=== PATIENT | male | born 1980 | race Caucasian/White ===

== ENCOUNTER 2019-08-08 18:04 | Emergency (ER) | payer BC ==
--- NOTE | 2019-08-08 18:33 | UC ---
Respiratory Complaint HPI - HPI Summary HPI Summary: 38 yo male presents with flu-like symptoms. He tells me that on 08/05 he developed fever, fatigue, body aches, and dry cough. He went to [facility] and had a negative flu test and CXR. They dx'd him with flu and prescribed him with tamiflu. He has not taken the tamiflu. Symptoms have been continuing. Temp today 102.3F that resolves with tylenol. Last dose was about 1 hour [employer]. He does not smoke. Denies sinus symptoms, sore throat, SOB, chest pain, n/v. Did not get flu shot today. No known exposure to COVID. No recent travel. - History of Current Complaint Stated Complaint: FEVER/COUGH Time Seen by Provider: 08/08/19 18:32 Hx Obtained From: Patient Onset/Duration: Sudden Onset Severity Initially: Mild Severity Currently: Mild Pain Intensity: 4 Pain Scale Used: 0-10 Numeric - Allergies/Home Medications Allergies/Adverse Reactions: Allergies Allergy/AdvReac Type Severity Reaction Status Date / Time amoxicillin Allergy Unknown Verified 08/08/19 18:49 Reaction Details Penicillins Allergy Unknown Verified 08/08/19 18:49 Reaction Details Home Medications: Home Medications Acetaminophen TAB* [Tylenol TAB*] 650 mg PO Q6HR 08/08/19 [History Confirmed ] Amlodipine Besylate [Amlodipine 2.5 mg tab] 2.5 mg PO DAILY 08/08/19 [History Confirmed 08/08/19] Azithromycin TAB* [Zithromax TAB (Z-FAREED) 250 mg #6 tabs] 2 tab PO .TODAY, THEN 1 DAILY #1 fareed 08/08/19 [Rx] Libida 1 mg INJ SEE INSTRUCTIONS 08/08/19 [History Confirmed 08/08/19] Lisinopril TAB* [Prinivil TAB 5 MG*] 5 mg PO DAILY 08/08/19 [History Confirmed 08/08/19] allopurinoL [Allopurinol] 100 mg PO DAILY 08/08/19 [History Confirmed 08/08/19] PMH/Surg Hx/FS Hx/Imm Hx - Additional Past Medical History Additional PMH: Gout Cardiovascular History: Hypertension - Surgical History Surgical History: None - Family History Known Family History: Positive: Hypertension - Social History Occupation: Employed Full-time Lives: With Family Alcohol Use: Occasionally Substance Use Type: None Smoking Status (MU): Current Every Day Smoker Type: Melia Review of Systems All Other Systems Reviewed And Are Negative: No Constitutional: Positive: Fever, Fatigue Skin: Positive: Negative Eyes: Positive: Negative ENT: Positive: Negative Respiratory: Positive: Cough Cardiovascular: Positive: Negative Gastrointestinal: Positive: Negative Neurological/Mental Status: Positive: Negative Psychological: Positive: Negative Physical Exam - Summary Physical Exam Summary: GENERAL: NAD. WDWN. No pain distress. SKIN: No rashes, sores, lesions, or open wounds. HEENT: Head: AT/NC Eyes: Conjunctiva clear without inflammation or discharge. Ears: Hearing grossly normal. TMs intact, no bulging, erythema, or edema. Nose: Nasal mucosa pink and moist. NTTP maxillary and frontal sinus. Throat: Posterior oropharynx without exudates, erythema, or tonsillar enlargement. Uvula midline. NECK: Supple. Nontender. No lymphadenopathy. CHEST: Mild wheezing throughout. No r/r. No accessory muscle use. Breathing comfortably and in no distress. CV: RRR. Pulses intact. Cap refill <2seconds NEURO: Alert. PSYCH: Age appropriate behavior. Triage Information Reviewed: Yes Vital Signs: Vital Signs: Temp Pulse Resp BP Pulse Ox 99.2 F 100 18 118/78 96 08/08/19 18:33 08/08/19 18:33 08/08/19 18:33 08/08/19 18:33 08/08/19 18:33 Laboratory Tests 08/08/19 08/08/19 19:15 19:18 Influenza A (Rapid) Negative Influenza B (Rapid) Negative Group A Strep Rapid Negative Vital Signs Reviewed: Yes Diagnostics - Radiology CXR Radiology Interpretation Completed By: Radiologist Summary of Radiographic Findings: IMPRESSION: No acute cardiopulmonary disease. Respiratory Course/Dx - Course Course Of Treatment: POC strep and flu negative. Exam performed utilizing CDC recommended PPE. You are being tested for COVID-19. You need to quarantine yourself in a bedroom and bathroom only you are using. You may not leave the house. [facility] will contact you and notify of results when they are available. Advised to be on home isolation until cleared by the health department. Go to ED for increased SOB or any difficulty breathing - new or worsening symptoms. - Differential Dx/Diagnosis Provider Diagnosis: Bronchitis Discharge ED - Sign-Out/Discharge Documenting (check all that apply): Patient Departure All imaging exams completed and their final reports reviewed: Yes - Discharge Plan Condition: Stable Disposition: HOME Prescriptions: Azithromycin TAB* [Zithromax TAB (Z-FAREED) 250 mg #6 tabs] 2 tab PO .TODAY, THEN 1 DAILY #1 fareed Patient Education Materials: Acute Bronchitis (ED) Referrals: Annemarie Fernando MD [Primary Care Provider] - Additional Instructions: FLU TEST NEGATIVE TODAY You are being tested for COVID-19. You need to quarantine yourself in a bedroom and bathroom only you are using. You may not leave the house. [facility] will contact you and notify of results when they are available. Advised to be on home isolation until cleared by the health department. Go to ED for increased SOB or any difficulty breathing - new or worsening symptoms. - Billing Disposition and Condition Condition: STABLE Disposition: Home
[2019-08-08 19:17] VITALS: BP 118/78
[2019-08-08 19:29] LABS: Influenza A Molecular Negative (Negative); Influenza B Molecular Negative (Negative)
== END 2019-08-08 19:35 | disposition home or self-care (01) ==
LOC: UCEAST 18:04
DX: J40 Bronchitis, not specified as acute or chronic (principal); I10 Essential (primary) hypertension; F17.290 Nicotine dependence, other tobacco product, uncomplicated; Z88.0 Allergy status to penicillin; Z79.899 Other long term (current) drug therapy
CPT/HCPCS: 71046; 87651; 99212; G0463; U0002

== ENCOUNTER 2019-08-12 12:50 | Inpatient (IN) | payer BC ==
[2019-08-12] MEDS ORDERED: NS 0.9% 1000 ML** 1,000 ML IV ONE (13:03)
[2019-08-12] MEDS ORDERED: Ondansetron INJ* 2 MG/ML VIAL IV ONE (13:03)
[2019-08-12] MEDS ORDERED: Levofloxacin 750 MG IVPREMIX(* 750 MG/150 ML BAG IVPB ONE (13:05)
[2019-08-12] MEDS ORDERED: Acetaminophen TAB* 325 MG PO ONE (13:05)
[2019-08-12] MEDS ORDERED: Acetaminophen TAB* 325 MG ONE (13:07)
--- NOTE | 2019-08-12 13:07 | ED ---
Respiratory - HPI Summary HPI Summary: This pt is a 38 Y/O M presenting to [facility] with a CC of worsening SOB that began this morning when he woke up. He states that he began feeling sick on Wednesday and has not improved. He was seen on 08/08/2019 at urgent care where he had a COVID-19 test preformed which eventually was positive. He states that since the onset he has been feverish with chills, SOB, CP, diarrhea, vomiting, and nausea. His CP is rated an 8/10 and worsens with deep breaths. Today his symptoms worsened acutely and the pt became more SOB and developed a more aggressive cough. He has no aggravating or alleviating factors. Pt denies any, erythema of eyes, abdominal pain, dysuria, hematuria, myalgia, edema, rash, or dizziness. He has a PMHx of HTN. - History of Current Complaint Chief Complaint: EDRespiratoryDistress Stated Complaint: GENERAL ILLNESS Time Seen by Provider: 08/12/19 12:52 Hx Obtained From: Patient Onset/Duration: Sudden Onset, Lasting Weeks - 1, Still Present, Worse Since - today Timing: Constant Initial Severity: Mild Current Severity: Severe Pain Intensity: 8 Character: Cough (Nonproductive) Sputum Amount: None Aggravating Factor(s): Deep Breaths Alleviating Factor(s): Nothing Associated Signs and Symptoms: Negative - erythema of eyes, abdominal pain, dysuria, hematuria, myalgia, edema, rash, or dizziness., Fever, SOB, Chest Pain , Chest Pain with Cough, Chills - Allergy/Home Medications Allergies/Adverse Reactions: Allergies Allergy/AdvReac Type Severity Reaction Status Date / Time amoxicillin Allergy Unknown Verified 08/12/19 13:03 Reaction Details Penicillins Allergy Unknown Verified 08/12/19 13:03 Reaction Details Home Medications: Home Medications Acetaminophen TAB* [Tylenol TAB*] 650 mg PO Q6HR 08/08/19 [History Confirmed ] Amlodipine Besylate [Amlodipine 2.5 mg tab] 2.5 mg PO DAILY 08/08/19 [History Confirmed 08/12/19] Azithromycin TAB* [Zithromax TAB (Z-FAREED) 250 mg #6 tabs] 2 tab PO .TODAY, THEN 1 DAILY #1 fareed 08/08/19 [Rx Confirmed 08/12/19] Libida 1 mg INJ SEE INSTRUCTIONS 08/08/19 [History Confirmed 08/12/19] Lisinopril TAB* [Prinivil TAB 5 MG*] 5 mg PO DAILY 08/08/19 [History Confirmed 08/12/19] allopurinoL [Allopurinol] 300 mg PO DAILY 08/08/19 [History Confirmed 08/12/19] PMH/Surg Hx/FS Hx/Imm Hx Previously Healthy: Yes Endocrine/Hematology History: Denies: Hx Diabetes Cardiovascular History: Reports: Hx Hypertension Respiratory History: Denies: Hx Asthma - Cancer History Hx Chemotherapy: No Hx Radiation Therapy: No - Surgical History Surgical History: None - Immunization History Immunizations Up to Date: Yes Infectious Disease History: Denies: Traveled Outside the [place] in Last 30 Days - Family History Known Family History: Positive: Hypertension - Social History Occupation: Employed Full-time Lives: With Family Alcohol Use: Occasionally Hx Substance Use: No Substance Use Type: Reports: None Hx Tobacco Use: Yes Smoking Status (MU): Current Every Day Smoker Type: eCigarettes Have You Smoked in the Last Year: Yes Review of Systems Positive: Fever, Chills Negative: Erythema Negative: Sore Throat Positive: Chest Pain Positive: Shortness Of Breath, Cough Positive: Vomiting, Diarrhea, Nausea. Negative: Abdominal Pain Negative: dysuria, hematuria Negative: Myalgia, Edema Negative: Rash Neurological/Mental Status: Negative - Dizziness All Other Systems Reviewed And Are Negative: Yes Physical Exam - Summary Physical Exam Summary: Constitutional: Well-developed, Well-nourished, Alert. (-) Distressed Skin: Warm, Dry HENT: Normocephalic; Atraumatic Eyes: Conjunctiva normal Neck: Musculoskeletal ROM normal neck. (-) JVD, (-) Stridor, (-) Tracheal deviation Cardio: Rhythm regular, Tachycardic 100-105, Heart sounds normal; Intact distal pulses; Radial pulses are 2+ and symmetric. (-) Murmur Pulmonary/Chest wall Slightly shortened sentences, 90% on room air. Mild respiratory distress, (-) Wheezes, (-) Rales Abd: Soft, (-) tenderness, (-) Distension, (-) Guarding, (-) Rebound Musculoskeletal: (-) Edema Lymph: (-) Cervical adenopathy Neuro: Alert, Oriented x3 Psych: Mood and affect Normal Triage Information Reviewed: Yes Vital Signs On Initial Exam: Temp Pulse Resp BP SpO2 FiO2 99.6 F 97 29 124/83 90 08/12/19 12:52 08/12/19 12:52 08/12/19 12:52 08/12/19 12:52 08/12/19 12:52 Vital Signs Reviewed: Yes Procedures - Sedation Patient Received Moderate/Deep Sedation with Procedure: No Diagnostics - Laboratory Result Diagrams: 08/12/19 13:16 08/12/19 13:16 Lab Statement: Any lab studies that have been ordered have been reviewed, and results considered in the medical decision making process. - Radiology CXR Radiology Interpretation Completed By: Radiologist Summary of Radiographic Findings: INCREASED PATCHY BILATERAL AIRSPACE OPACIFICATION. ED physciain has reviewed this report. Disposition - Course Course Of Treatment: Patient is here with worsening respiratory status with a positive Covid 19 test. Patient was 90% on room air. Patient was borderline tachycardic as well. Patient had a chest x-ray performed which showed bilateral patchy airspace opacification. Patient had blood work performed which grossly unremarkable including a normal lactate. Patient does have a mildly elevated CRP. Patient was treated with levofloxacin empirically. Patient was given 1 L fluid and Tylenol as well. He was admitted to the hospital - Diagnoses Provider Diagnoses: Vomiting, Diarrhea, Pneumonia due to 2019 novel coronavirus, Hypoxia - Physician Notifications Discussed Care Of Patient With: Lora Dominguez Time Discussed With Above Provider: 13:59 Instructed by Provider To: Admit As Inpatient Admit/Transition Orders Completed By ED Provider: Yes Discharge ED - Sign-Out/Discharge Documenting (check all that apply): Patient Departure - admitted - Discharge Plan Condition: Stable Disposition: ADMITTED TO [facility] - Billing Disposition and Condition Condition: STABLE Disposition: Admitted to [facility] - Attestation Statements Document Initiated by Scribe: Yes Documenting Scribe: Rajeev Baker Provider For Whom Mickeyibatilio is Documenting (Include Credential): Ming Freeman MD Scribe Attestation: Rajeev Carrasco, scribed for Ming Freeman MD on 08/12/19 at 1913. Scribe Documentation Reviewed: Yes Provider Attestation: The documentation as recorded by the Rajeev hoover accurately reflects the service I personally performed and the decisions made by Ming dixon MD Status of Scribe Document: Viewed
[2019-08-12 13:29] LABS: Hematocrit 42 % (42-52); Mean Corpuscular HGB Conc 36 g/dL (31-36); Mean Corpuscular Hemoglobin 32 pg (27-31); Mean Corpuscular Volume 89 fL (80-94); Red Blood Count 4.73 10^6 /uL (4.18-5.48); Red Cell Distribution Width 14 % (10-15); White Blood Count 5.4 10^3/uL (3.5-10.8)
[2019-08-12 13:44] LABS: ABS Lymphocytes 1.1 10^3/ul (1.0-4.8); ABS Monocytes 0.5 10^3/ul (0-0.8); ABS Neutrophils 3.8 10^3/ul (1.5-7.7); Lymphocyte % 21.1 %; Nucleated Red Blood Cells % 0.1
[2019-08-12 13:45] LABS: Albumin 3.9 g/dL (3.2-5.2); Albumin/Globulin Ratio 1.1 (1-3); C Reactive Protein 50.52 mg/L (<8.01); Calcium 9.1 mg/dL (8.6-10.3); EGFR African American 85.7 (>60); EGFR Non-African American 70.8 (>60); Globulin 3.4 g/dL (2-4); Potassium 3.9 mmol/L (3.5-5.0); Total Bilirubin 1.1 mg/dL (0.2-1.0); Total Protein 7.3 g/dL (6.4-8.9)
[2019-08-12 13:47] LABS: Troponin I 0.01 ng/mL (<0.03)
[2019-08-12 13:59] LABS: Platelet Count 97 10^3/uL (150-450)
[2019-08-12] MEDS ORDERED: NS 0.9% 1000 ML** 1,000 ML IV SCH (15:00)
[2019-08-12] MEDS: Enoxaparin(*) 40 MG/0.4 ML SYR SUBCUT SCH (16:46)
[2019-08-12] MEDS: Hydroxychloroquine TAB* 200 MG PO SCH (16:46)
--- NOTE | 2019-08-12 19:48 | HP ---
CC: Dr. Fernando; Dr. Tyson * HISTORY AND PHYSICAL: DATE OF ADMISSION: 08/12/19 PRIMARY CARE PROVIDER: Dr. Fernando. CHIEF COMPLAINT: Increased shortness of breath, cough, and diarrhea. HISTORY OF PRESENT ILLNESS: Mr. Cheatham is a 38-year-old male who has a history of hypertension, gout, and low testosterone for which he receives injections, who presented to the emergency room with complaints of increased cough, shortness of breath, and diarrhea. The patient states his symptoms began this past 08/06/19, with sneezing, coughing, runny nose, and fever up to 102.9. He went to [facility] on Wednesday. He states that he was flu swabbed and was reportedly negative. He continued to have fevers as well as other symptoms and therefore went to [facility] on 08/08/19. At that time, the patient underwent chest x-ray and COVID-19 screening. He was swabbed to rule out COVID. He was prescribed azithromycin for a possible bronchitis. The patient did report having sputum with his cough. He states that it was initially brown, it is now clear. He notes that he began to have diarrhea approximately 2 days ago. After visit to urgent care, he started azithromycin. The patient was contacted by the health department yesterday, , that his COVID-19 test was positive. Reportedly, his and children were swabbed. He does not recall any direct contact with any known positive COVID cases in the community. He does work at [employer]. PAST MEDICAL HISTORY: 1. Gout. 2. Hypertension. 3. Low testosterone. PAST SURGICAL HISTORY: None. MEDICATIONS: 1. Tylenol 650 mg p.o. q.6 hours p.r.n. pain or fever. 2. Allopurinol 300 mg p.o. daily. 3. Amlodipine 2.5 mg p.o. daily. 4. Azithromycin 250 mg p.o. daily. He has had 4 days of treatment. 5. 1 mg per the direction of Dr. Tyson. 6. Lisinopril 5 mg p.o. daily. ALLERGIES: None. FAMILY HISTORY: Dad is living, he is 76. He does have cancer, he does not know what type. Mom is living, she is 68 and healthy. SOCIAL HISTORY: The patient is a former cigarette smoker of 1 pack per day for 20 years, he quit 10 years ago. He also admits to drooling over the last few months, but he stopped this 1 month ago. He does not drink any alcohol. He denies any recreational drug use. He works at [employer]. He is , he has 3 children. He indicates that his , Yusef, or his father, Dr. Mendes, would be his healthcare proxies. REVIEW OF SYSTEMS: The patient admits to fevers, diaphoresis, and anorexia x1 week. He admits to chest pain with his cough that began last evening. No lower extremity edema. He admits cough, shortness of breath, and sputum production as above. He did vomit last evening. He has had diarrhea x2 days. He denies any abdominal pain. There has been no hematochezia. No hematuria. No dysuria. He has no focal weakness, but exhibit generalized weakness. He complains that his right leg has been going numb off and on. When I asked him to clarify, he states he has had numbness to the anterior aspect of the right thigh. He denies any sudden changes in vision. No dysphagia. No joint pains or muscle pains out of the ordinary. No rashes. He does admit to anxiety with his recent COVID-19 diagnosis, though otherwise states he is doing fine. PHYSICAL EXAMINATION GENERAL: The patient is a well-developed, obese, middle-aged male, sitting up in the stretcher with a face mask on, appearing diaphoretic and tachypneic with talking, but in no acute distress. VITAL SIGNS: Blood pressure 124/83, pulse 97, respirations 29, temp 99.6, O2 sat 90% on room air. HEENT: Pupils are equal. Extraocular muscles are intact. There is no submandibular, cervical, or supraclavicular adenopathy. PULMONARY: Lungs are clear bilaterally. CARDIAC: Normal S1, S2. Regular rate and rhythm. There are no murmurs. There is no lower extremity edema. ABDOMEN: Bowel sounds present. Abdomen is soft, nontender, nondistended. MUSCULOSKELETAL: The patient moves all 4 extremities symmetrically. NEURO: Appears to be nonfocal. PSYCH: The patient is alert. He is oriented x3. Affect appears appropriate. SKIN: Visible areas of skin are warm, dry, and without rash. DIAGNOSTIC STUDIES/LAB DATA: WBC 5.4, hemoglobin 15.0, hematocrit 42, platelets 97. Sodium 131, potassium 3.9, chloride 99, CO2 of 25, BUN 15, creatinine 1.15, glucose 105, lactic acid 0.8, calcium 9.1. Bilirubin 1.1, AST 43, ALT 23, alk phos 34. Troponin 0.01. CRP 50.52. BNP 13. Albumin 3.9. Chest x-ray reveals patchy bilateral airspace opacification. ASSESSMENT AND PLAN: Mr. Cheatham is a 38-year-old male with history of hypertension and gout who has had 1 week of cough, shortness of breath, fevers, and more recently diarrhea, who has returned COVID-19 positive and now presents to the emergency room with increased shortness of breath, cough, and concern for dehydration. 1. COVID-19. At this point, the patient is moderately ill. He is not in acute respiratory distress at this time; however, given his borderline hypoxia and tachypnea, it is felt that it is important that the patient be admitted to the hospital for continued supportive care. I consulted with Dr. Maya, who has recommended initiating Plaquenil 600 mg p.o. q.12 hours x2 doses, then 400 mg p.o. daily x5 days. He will not be given aggressive IV fluid hydration, but we will continue on normal saline 75 mL/hr given the diarrhea that he was experiencing. At this point, he is not wheezing; therefore, I will not order any MDI treatments. There is data that may suggest that treatment with hydroxychloroquine and azithromycin combined is beneficial to the patient; however, the patient had been on azithromycin as an outpatient taking 4 days' worth. I will not continue this medication at this time. I do not believe that he needs any other antibiotic treatment, though he did receive a dose of levofloxacin in the emergency room. We will monitor his vital signs closely and monitor for respiratory decline. 2. Hypertension. BP is under good control. He will continue on his usual dose of lisinopril 5 mg p.o. daily and amlodipine 2.5 mg p.o. daily. 3. Gout. We will continue allopurinol 300 mg p.o. daily. 4. DVT prophylaxis. According to the Adult Thrombosis Prophylaxis Risk Factor Assessment Guide, the patient has a total risk factor score of 2, making him moderate risk. He will be placed on Lovenox 40 mg subcutaneous daily. 5. Code status is full. TIME SPENT: Sixty-five minutes was spent admitting this patient. [id number]/[facility] #: [id number] MTDD
[2019-08-13] MEDS: Acetaminophen TAB* 325 MG PO PRN ×5 (00:15→23:50)
[2019-08-13] MEDS: Hydroxychloroquine TAB* 200 MG PO SCH ×2 (02:42→15:18)
[2019-08-13 06:58] LABS: Calcium 8.3 mg/dL (8.6-10.3); Potassium 4.1 mmol/L (3.5-5.0)
[2019-08-13 07:04] LABS: EGFR African American 100.7 (>60); EGFR Non-African American 83.2 (>60)
[2019-08-13 07:08] LABS: Hematocrit 40 % (42-52); Hemoglobin 13.9 g/dL (14.0-18.0); Mean Corpuscular HGB Conc 35 g/dL (31-36); Mean Corpuscular Hemoglobin 32 pg (27-31); Mean Corpuscular Volume 93 fL (80-94); Mean Platelet Volume 9.5 fL (7.4-10.4); Platelet Count 59 10^3/uL (150-450); Red Blood Count 4.32 10^6 /uL (4.18-5.48); Red Cell Distribution Width 14 % (10-15); White Blood Count 5.4 10^3/uL (3.5-10.8)
[2019-08-13] MEDS: amLODIPine TAB* 5 MG PO SCH (08:36)
[2019-08-13] MEDS: Allopurinol TAB* 300 MG PO SCH (08:36)
[2019-08-13] MEDS: Lisinopril TAB* 5 MG PO SCH (08:36)
[2019-08-13] MEDS ORDERED: Allopurinol TAB* 100 MG PO SCH (09:00)
[2019-08-13] MEDS: Loperamide CAP* 2 MG PO PRN (12:20)
--- NOTE | 2019-08-13 14:00 | PN ---
Subjective Date of Service: 08/13/19 Interval History: Pt feels his breathing is a little better than yesterday. He is coughing less. He does note this AM there was blood when he blew his nose. He continues to have diarrhea. Objective Active Medications: Acetaminophen (Tylenol Tab*) 650 mg PO Q4H PRN PRN Reason: Pain - Mild or fever >100.4 Last Admin: 08/13/19 08:36 Dose: 650 mg Allopurinol (Zyloprim Tab*) 300 mg PO DAILY [facility] Last Admin: 08/13/19 08:36 Dose: 300 mg Amlodipine Besylate (Norvasc Tab*) 2.5 mg PO DAILY [facility] Last Admin: 08/13/19 08:36 Dose: 2.5 mg Enoxaparin Sodium (Lovenox(*)) 40 mg SUBCUT Q24H [facility] Last Admin: 08/12/19 16:46 Dose: 40 mg Hydroxychloroquine Sulfate (Plaquenil Tab*) 400 mg PO DAILY@1600 [facility] Stop: 08/16/19 16:01 Lisinopril (Prinivil Tab*) 5 mg PO DAILY [facility] Last Admin: 08/13/19 08:36 Dose: 5 mg Loperamide HCl (Imodium Cap*) 2 mg PO .SEE DIRECTIONS PRN PRN Reason: DIARRHEA Last Admin: 08/13/19 12:20 Dose: 2 mg Vital Signs - 8 hr 08/13/19 08/13/19 08/13/19 06:00 08:00 11:30 Temperature 101.4 F 101.6 F 100.1 F Pulse Rate 91 97 89 Respiratory 20 20 20 Rate Blood Pressure 117/60 103/57 98/66 (mmHg) O2 Sat by Pulse 97 97 96 Oximetry 08/13/19 08/13/19 12:20 13:00 Temperature 100.1 F Pulse Rate 99 Respiratory 20 20 Rate Blood Pressure 123/66 (mmHg) O2 Sat by Pulse 92 Oximetry Oxygen Devices in Use Now: Nasal Cannula Appearance: Middle aged male looking unwell but in NAD Eyes: No Scleral Icterus Ears/Nose/Mouth/Throat: Mucous Membranes Moist Respiratory: Symmetrical Chest Expansion and Respiratory Effort, Clear to Auscultation Cardiovascular: NL Sounds; No Murmurs; No JVD, RRR, No Edema Abdominal: NL Sounds; No Tenderness; No Distention Extremities: No Clubbing, Cyanosis Skin: No Nodules or Sclerosis Neurological: Alert and Oriented x 3 Result Diagrams: 08/13/19 06:15 08/13/19 06:15 Microbiology and Other Data: Microbiology 08/12/19 13:16 Aerobic Blood Culture - Preliminary Blood Venous No Growth Day 1 Anaerobic Blood Culture - Preliminary No Growth Day 1 08/12/19 13:16 Aerobic Blood Culture - Preliminary Blood Venous No Growth Day 1 Anaerobic Blood Culture - Preliminary No Growth Day 1 08/13/19 05:24 Stool Gross Appearance - Final Stool C. difficile DNA Amplification - Final 027 Presumptive NEGATIVE Toxigenic C.diff NEGATIVE Assess/Plan/Problems-Billing Mr Cheatham is a 38 yo M who has a h/o HTN and past smoking history who presented to the ER with c/o increased shortness of breath and diarrhea in the setting of being positive for COVID-19. - Patient Problems (1) Viral pneumonia Current Visit: Yes Status: Acute Code(s): J12.9 - VIRAL PNEUMONIA, UNSPECIFIED SNOMED Code(s): 05058619 Comment: Pt with COVID-19. Respiratory status is stable. Weaned O2 to 2L but needed to go back up as he felt very SOB with exertion and like he was going to faint. He has worsened thrombocytopenia today. I have explained that he should notify nursing if he has significant bleeding. Continue hydroxychloroquine 400mg daily as recommended by Dr. Maay. (2) HTN (hypertension) Current Visit: Yes Status: Acute Code(s): I10 - ESSENTIAL (PRIMARY) HYPERTENSION SNOMED Code(s): 32839767 Comment: BP is under good control on his usual home medications. (3) DVT prophylaxis Current Visit: Yes Status: Acute Code(s): Z29.9 - ENCOUNTER FOR PROPHYLACTIC MEASURES, UNSPECIFIED SNOMED Code(s): 974037673 Comment: lovenox (4) Full code status Current Visit: Yes Status: Acute Code(s): Z78.9 - OTHER SPECIFIED HEALTH STATUS SNOMED Code(s): 663384044
[2019-08-13] MEDS: Enoxaparin(*) 40 MG/0.4 ML SYR SUBCUT SCH (15:18)
[2019-08-13] MEDS: LORazepam TAB(*) 0.5 MG PO PRN (15:18)
[2019-08-14 08:37] LABS: Hematocrit 37 % (42-52); Hemoglobin 12.9 g/dL (14.0-18.0); Mean Corpuscular HGB Conc 35 g/dL (31-36); Mean Corpuscular Hemoglobin 32 pg (27-31); Mean Corpuscular Volume 90 fL (80-94); Mean Platelet Volume 8.1 fL (7.4-10.4); Platelet Count 121 10^3/uL (150-450); Red Blood Count 4.08 10^6 /uL (4.18-5.48); Red Cell Distribution Width 14 % (10-15); White Blood Count 8.1 10^3/uL (3.5-10.8)
[2019-08-14 08:47] LABS: BUN/Creatinine Ratio 12.8 (8-20); C Reactive Protein 122.84 mg/L (<8.01); Calcium 8.5 mg/dL (8.6-10.3); EGFR African American 91.1 (>60); EGFR Non-African American 75.3 (>60)
[2019-08-14] MEDS: amLODIPine TAB* 5 MG PO SCH (10:23)
[2019-08-14] MEDS: Allopurinol TAB* 300 MG PO SCH (10:23)
[2019-08-14] MEDS: Lisinopril TAB* 5 MG PO SCH (10:23)
[2019-08-14] MEDS: LORazepam TAB(*) 0.5 MG PO PRN (10:23)
[2019-08-14] MEDS: Acetaminophen TAB* 325 MG PO PRN ×2 (11:21→20:33)
--- NOTE | 2019-08-14 15:05 | PN ---
Subjective Date of Service: 08/14/19 Interval History: Pt is feeling relatively unchanged. He does note that if he moves at all he starts to cough and then feels very SOB. His appetite has improved some. Objective Active Medications: Acetaminophen (Tylenol Tab*) 650 mg PO Q4H PRN PRN Reason: Pain - Mild or fever >100.4 Last Admin: 08/14/19 11:21 Dose: 650 mg Allopurinol (Zyloprim Tab*) 300 mg PO DAILY [facility] Last Admin: 08/14/19 10:23 Dose: 300 mg Amlodipine Besylate (Norvasc Tab*) 2.5 mg PO DAILY [facility] Last Admin: 08/14/19 10:23 Dose: 2.5 mg Enoxaparin Sodium (Lovenox(*)) 40 mg SUBCUT Q24H [facility] Last Admin: 08/13/19 15:18 Dose: 40 mg Hydroxychloroquine Sulfate (Plaquenil Tab*) 400 mg PO DAILY@1600 [facility] Stop: 08/16/19 16:01 Last Admin: 08/13/19 15:18 Dose: 400 mg Lisinopril (Prinivil Tab*) 5 mg PO DAILY [facility] Last Admin: 08/14/19 10:23 Dose: 5 mg Loperamide HCl (Imodium Cap*) 2 mg PO .SEE DIRECTIONS PRN PRN Reason: DIARRHEA Last Admin: 08/13/19 12:20 Dose: 2 mg Lorazepam (Ativan Tab(*)) 0.5 mg PO Q6H PRN PRN Reason: ANXIETY Last Admin: 08/14/19 10:23 Dose: 0.5 mg Vital Signs - 8 hr 08/14/19 08/14/19 08/14/19 07:47 08:00 09:00 Temperature 100.7 F Pulse Rate 95 96 Respiratory 34 32 36 Rate Blood Pressure 108/59 138/71 (mmHg) O2 Sat by Pulse 93 95 Oximetry 08/14/19 08/14/19 10:23 11:19 Temperature 101.5 F 97.6 F Pulse Rate 101 97 Respiratory 32 40 Rate Blood Pressure 114/57 (mmHg) O2 Sat by Pulse 92 94 Oximetry Oxygen Devices in Use Now: OxyMask Appearance: Middle aged male lying in bed, sleeping, awakens from sleep to voice , NAD Eyes: No Scleral Icterus Ears/Nose/Mouth/Throat: Mucous Membranes Moist Respiratory: Symmetrical Chest Expansion and Respiratory Effort, - - mild crackles LLL otherwise clear Cardiovascular: NL Sounds; No Murmurs; No JVD, RRR, No Edema Abdominal: NL Sounds; No Tenderness; No Distention Extremities: No Clubbing, Cyanosis Skin: No Nodules or Sclerosis Neurological: Alert and Oriented x 3 Result Diagrams: 08/14/19 08:16 08/14/19 08:16 Microbiology and Other Data: Microbiology 08/12/19 13:16 Aerobic Blood Culture - Preliminary Blood Venous No Growth Day 1 Anaerobic Blood Culture - Preliminary No Growth Day 1 08/12/19 13:16 Aerobic Blood Culture - Preliminary Blood Venous No Growth Day 1 Anaerobic Blood Culture - Preliminary No Growth Day 1 08/13/19 05:24 Stool Gross Appearance - Final Stool C. difficile DNA Amplification - Final 027 Presumptive NEGATIVE Toxigenic C.diff NEGATIVE Assess/Plan/Problems-Billing Mr Cheatham is a 38 yo M who has a h/o HTN and past smoking history who presented to the ER with c/o increased shortness of breath and diarrhea in the setting of being positive for COVID-19. - Patient Problems (1) Viral pneumonia Current Visit: Yes Status: Acute Code(s): J12.9 - VIRAL PNEUMONIA, UNSPECIFIED SNOMED Code(s): 86391192 Comment: Pt with COVID-19. Respiratory status is stable on 4L O2, today when his oxymask was off while he was sleeping, his O2 sat was only 86%. He contiues to be febrile. Thrombocytopenia is improved today but CRP is up. Continue hydroxychloroquine 400mg daily x3 more doses as recommended by Dr. Maya. Will keep pt in the hospital until O2 requirements improved. (2) HTN (hypertension) Current Visit: Yes Status: Acute Code(s): I10 - ESSENTIAL (PRIMARY) HYPERTENSION SNOMED Code(s): 26973757 Comment: BP is under good control on his usual home medications. (3) DVT prophylaxis Current Visit: Yes Status: Acute Code(s): Z29.9 - ENCOUNTER FOR PROPHYLACTIC MEASURES, UNSPECIFIED SNOMED Code(s): 173090168 Comment: lovenox (4) Full code status Current Visit: Yes Status: Acute Code(s): Z78.9 - OTHER SPECIFIED HEALTH STATUS SNOMED Code(s): 846487944
[2019-08-14] MEDS: Enoxaparin(*) 40 MG/0.4 ML SYR SUBCUT SCH (16:12)
[2019-08-14] MEDS: Hydroxychloroquine TAB* 200 MG PO SCH (16:12)
[2019-08-15] MEDS: Allopurinol TAB* 300 MG PO SCH (08:21)
[2019-08-15] MEDS: Lisinopril TAB* 5 MG PO SCH (08:21)
[2019-08-15] MEDS: amLODIPine TAB* 5 MG PO SCH (08:21)
[2019-08-15] MEDS: Acetaminophen TAB* 325 MG PO PRN ×2 (08:22→20:47)
[2019-08-15 11:09] LABS: ABS Eosinophils 0.1 10^3/ul (0-0.6); ABS Lymphocytes 0.9 10^3/ul (1.0-4.8); ABS Monocytes 0.5 10^3/ul (0-0.8); ABS Neutrophils 5.7 10^3/ul (1.5-7.7); Hematocrit 39 % (42-52); Lymphocyte % 12.6 %; Mean Corpuscular HGB Conc 36 g/dL (31-36); Mean Corpuscular Hemoglobin 32 pg (27-31); Mean Corpuscular Volume 89 fL (80-94); Platelet Count 167 10^3/uL (150-450); Red Cell Distribution Width 14 % (10-15); White Blood Count 7.3 10^3/uL (3.5-10.8)
[2019-08-15 11:30] LABS: Albumin 3.7 g/dL (3.2-5.2); Albumin/Globulin Ratio 1.2 (1-3); BUN/Creatinine Ratio 15.1 (8-20); C Reactive Protein 112.58 mg/L (<8.01); EGFR African American 119.8 (>60); Globulin 3.1 g/dL (2-4); Indirect Bilirubin 0.7 mg/dL (0.3-1.0); Magnesium 2.2 mg/dL (1.9-2.7); Total Protein 6.8 g/dL (6.4-8.9)
[2019-08-15] MEDS: Azithromycin TAB* 250 MG PO SCH (12:26)
[2019-08-15] MEDS: Loperamide CAP* 2 MG PO PRN (12:28)
--- NOTE | 2019-08-15 13:27 | PN ---
Subjective Date of Service: 08/15/19 Interval History: No overnight events. Patient still with severe dyspnea on any exertion, accompanied by significant coughing productive of mucous. States he has a headache when coughing as well. Feels about the same as yesterday. His 3 children were tested for COVID - results likely today. is confirmed positive and has asthma but is ok at home. Still on 4L NC. Hasn't been getting out of bed much. Encouraged to get into chair, take deep breaths. Objective Active Medications: Acetaminophen (Tylenol Tab*) 650 mg PO Q4H PRN PRN Reason: Pain - Mild or fever >100.4 Last Admin: 08/15/19 08:22 Dose: 650 mg Allopurinol (Zyloprim Tab*) 300 mg PO DAILY [facility] Last Admin: 08/15/19 08:21 Dose: 300 mg Amlodipine Besylate (Norvasc Tab*) 5 mg PO DAILY [facility] Azithromycin (Zithromax Tab*) 250 mg PO DAILY [facility] Stop: 08/16/19 09:01 Last Admin: 08/15/19 12:26 Dose: 250 mg Enoxaparin Sodium (Lovenox(*)) 40 mg SUBCUT Q24H [facility] Last Admin: 08/14/19 16:12 Dose: 40 mg Hydroxychloroquine Sulfate (Plaquenil Tab*) 400 mg PO DAILY@1600 [facility] Stop: 08/16/19 16:01 Last Admin: 08/14/19 16:12 Dose: 400 mg Loperamide HCl (Imodium Cap*) 2 mg PO .SEE DIRECTIONS PRN PRN Reason: DIARRHEA Last Admin: 08/15/19 12:28 Dose: 2 mg Lorazepam (Ativan Tab(*)) 0.5 mg PO Q6H PRN PRN Reason: ANXIETY Last Admin: 08/14/19 10:23 Dose: 0.5 mg Vital Signs - 8 hr 08/15/19 08/15/19 11:55 12:28 Temperature 97.9 F Pulse Rate 96 Respiratory 30 28 Rate Blood Pressure 113/63 (mmHg) O2 Sat by Pulse 96 Oximetry Oxygen Devices in Use Now: OxyMask Appearance: nontoxic and comfotable, somewhat anxious-appearing Eyes: No Scleral Icterus Ears/Nose/Mouth/Throat: Clear Oropharnyx, Mucous Membranes Moist Neck: NL Appearance and Movements; NL JVP, Trachea Midline Respiratory: - - decreased breath sounds throughout but without crackles or wheeze Cardiovascular: NL Sounds; No Murmurs; No JVD, RRR Abdominal: NL Sounds; No Tenderness; No Distention, No Hepatosplenomegaly Extremities: No Edema Skin: No Rash or Ulcers Neurological: Alert and Oriented x 3 Result Diagrams: 08/15/19 10:48 08/15/19 10:48 Microbiology and Other Data: Microbiology 08/12/19 13:16 Aerobic Blood Culture - Preliminary Blood Venous No Growth Day 1 Anaerobic Blood Culture - Preliminary No Growth Day 1 08/12/19 13:16 Aerobic Blood Culture - Preliminary Blood Venous No Growth Day 1 Anaerobic Blood Culture - Preliminary No Growth Day 1 08/13/19 05:24 Stool Gross Appearance - Final Stool C. difficile DNA Amplification - Final 027 Presumptive NEGATIVE Toxigenic C.diff NEGATIVE Assess/Plan/Problems-Billing Mr Cheatham is a 38M with HTN, prior tobacco use, who presented with dyspnea and diarrhea in the setting of being positive for COVID-19. Found with hypoxia. - Patient Problems (1) Viral pneumonia Comment: COVID-19 positive prior to presentation, now with SaO2 mid-80s% on RA. Reassuring that hyponatremia, thrombocytopenia resolved; CRP slightly decreasing. - appreciate ID recs: on course of hydroxychloroquine, will also give few doses of azithro to complete outpatient course (may be benefit in COVID) - monitor QTc with tele - monitor SaO2, titrate supplemental O2 to SaO2 92-96% - encourage IS - monitor vitals closely (2) HTN (hypertension) Comment: BP low-normal on his home antihypertensives, which were at lower than usual starting doses. Will stop lisinopril (concern for association with worse health outcomes with COVID) and cont amlodipine at 5mg. - cont to monitor BP (3) DVT prophylaxis Comment: lovenox (4) Full code status
[2019-08-15] MEDS: Hydroxychloroquine TAB* 200 MG PO SCH (17:50)
[2019-08-15] MEDS: Enoxaparin(*) 40 MG/0.4 ML SYR SUBCUT SCH (17:50)
[2019-08-15] MEDS: LORazepam TAB(*) 0.5 MG PO PRN (20:48)
[2019-08-16] MEDS: Allopurinol TAB* 300 MG PO SCH (08:29)
[2019-08-16] MEDS: amLODIPine TAB* 5 MG PO SCH (08:29)
[2019-08-16] MEDS: Azithromycin TAB* 250 MG PO SCH (08:29)
[2019-08-16] MEDS: Hydroxychloroquine TAB* 200 MG PO SCH (16:26)
[2019-08-16] MEDS: Enoxaparin(*) 40 MG/0.4 ML SYR SUBCUT SCH (16:28)
[2019-08-16] MEDS ORDERED: guaiFENesin/CODIENE 100mg/10mg 5 ML UDC PO PRN (16:38)
--- NOTE | 2019-08-16 16:42 | PN ---
Subjective Date of Service: 08/16/19 Interval History: Pt very anxious overnight and refused to have o2 supplement decreased. Very apologetic this morning when explained why SaO2 goals at 92-96%. No fever in over 24 hours! Still experiencing dyspnea and cough on movement, but has been sitting in chair more. Diarrhea has resolved. In better spirits. Objective Active Medications: Acetaminophen (Tylenol Tab*) 650 mg PO Q4H PRN PRN Reason: Pain - Mild or fever >100.4 Last Admin: 08/15/19 20:47 Dose: 650 mg Allopurinol (Zyloprim Tab*) 300 mg PO DAILY [facility] Last Admin: 08/16/19 08:29 Dose: 300 mg Amlodipine Besylate (Norvasc Tab*) 5 mg PO DAILY [facility] Last Admin: 08/16/19 08:29 Dose: 5 mg Enoxaparin Sodium (Lovenox(*)) 40 mg SUBCUT Q24H [facility] Last Admin: 08/15/19 17:50 Dose: 40 mg Loperamide HCl (Imodium Cap*) 2 mg PO .SEE DIRECTIONS PRN PRN Reason: DIARRHEA Last Admin: 08/15/19 12:28 Dose: 2 mg Lorazepam (Ativan Tab(*)) 0.5 mg PO Q6H PRN PRN Reason: ANXIETY Last Admin: 08/15/19 20:48 Dose: 0.5 mg Vital Signs - 8 hr 08/16/19 11:00 Temperature 98.8 F Pulse Rate 81 Respiratory 20 Rate Blood Pressure 114/68 (mmHg) O2 Sat by Pulse 95 Oximetry Oxygen Devices in Use Now: Nasal Cannula Appearance: mildly anxious appearing, NAD, speaking in full sentences, nontoxic Eyes: No Scleral Icterus Ears/Nose/Mouth/Throat: Clear Oropharnyx, Mucous Membranes Moist Neck: NL Appearance and Movements; NL JVP, Trachea Midline Respiratory: - - decreased breath sounds but no adventitious sounds Cardiovascular: NL Sounds; No Murmurs; No JVD, RRR Abdominal: NL Sounds; No Tenderness; No Distention, No Hepatosplenomegaly Extremities: No Edema Neurological: Alert and Oriented x 3 Result Diagrams: 08/15/19 10:48 08/15/19 10:48 Microbiology and Other Data: Microbiology 08/12/19 13:16 Aerobic Blood Culture - Preliminary Blood Venous No Growth Day 1 Anaerobic Blood Culture - Preliminary No Growth Day 1 08/12/19 13:16 Aerobic Blood Culture - Preliminary Blood Venous No Growth Day 1 Anaerobic Blood Culture - Preliminary No Growth Day 1 08/13/19 05:24 Stool Gross Appearance - Final Stool C. difficile DNA Amplification - Final 027 Presumptive NEGATIVE Toxigenic C.diff NEGATIVE Assess/Plan/Problems-Billing Mr. Cheatham is a 38M with HTN, prior tobacco use, who presented with dyspnea and diarrhea in the setting of being positive for COVID-19. Found with hypoxia, thrombocytopenia, elevated CRP. - Patient Problems (1) Viral pneumonia Comment: COVID-19 positive prior to presentation, now with SaO2 mid-80s% on RA. Reassuring that hyponatremia, thrombocytopenia resolved; CRP slightly decreasing. - appreciate ID recs: on course of hydroxychloroquine, will also give few doses of azithro to complete outpatient course (may be benefit in COVID) - monitor QTc with tele - monitor SaO2, titrate supplemental O2 to SaO2 92-96% - encourage IS - monitor vitals closely (2) HTN (hypertension) Comment: BP low-normal on his home antihypertensives, which were at lower than usual starting doses. Will stop lisinopril (concern for association with worse health outcomes with COVID) and cont amlodipine at 5mg. - cont to monitor BP (3) DVT prophylaxis Comment: riky (4) Full code status
--- NOTE | 2019-08-17 07:56 | PN ---
Subjective Date of Service: 08/17/19 Interval History: No acute events overnight. Pending AM labs. Now finished with courses of hydroxychloroquine and azithro. Weaning oxygen - now down to 3L. No fever in 3 days. Patient reports feeling significantly better. States he's been able to walk around his room and only experiences mild cough and SOB. He removed his own oxygen today as he felt like he did not need it. RN reports now 95% on room air. Likely home tomorrow! Objective Active Medications: Acetaminophen (Tylenol Tab*) 650 mg PO Q4H PRN PRN Reason: Pain - Mild or fever >100.4 Last Admin: 08/15/19 20:47 Dose: 650 mg Allopurinol (Zyloprim Tab*) 300 mg PO DAILY [facility] Last Admin: 08/16/19 08:29 Dose: 300 mg Amlodipine Besylate (Norvasc Tab*) 5 mg PO DAILY [facility] Last Admin: 08/16/19 08:29 Dose: 5 mg Enoxaparin Sodium (Lovenox(*)) 40 mg SUBCUT Q24H [facility] Last Admin: 08/16/19 16:28 Dose: 40 mg Guaifenesin/Codeine Phosphate (Robitussin Ac 100mg/10mg In 5 Ml) 5 ml PO Q6H PRN PRN Reason: COUGH Loperamide HCl (Imodium Cap*) 2 mg PO .SEE DIRECTIONS PRN PRN Reason: DIARRHEA Last Admin: 08/15/19 12:28 Dose: 2 mg Lorazepam (Ativan Tab(*)) 0.5 mg PO Q6H PRN PRN Reason: ANXIETY Last Admin: 08/15/19 20:48 Dose: 0.5 mg Vital Signs - 8 hr 08/17/19 03:16 Temperature 98.9 F Pulse Rate 84 Respiratory 24 Rate Blood Pressure 120/77 (mmHg) O2 Sat by Pulse 92 Oximetry Appearance: well appearing man sitting in chair in NAD Eyes: No Scleral Icterus Ears/Nose/Mouth/Throat: Clear Oropharnyx, Mucous Membranes Moist Neck: NL Appearance and Movements; NL JVP, Trachea Midline Respiratory: Symmetrical Chest Expansion and Respiratory Effort, Clear to Auscultation Cardiovascular: NL Sounds; No Murmurs; No JVD, RRR Abdominal: NL Sounds; No Tenderness; No Distention, No Hepatosplenomegaly Extremities: No Edema Skin: No Rash or Ulcers Neurological: Alert and Oriented x 3 Result Diagrams: 08/15/19 10:48 08/17/19 07:13 Microbiology and Other Data: Microbiology 08/12/19 13:16 Aerobic Blood Culture - Preliminary Blood Venous No Growth Day 1 Anaerobic Blood Culture - Preliminary No Growth Day 1 08/12/19 13:16 Aerobic Blood Culture - Preliminary Blood Venous No Growth Day 1 Anaerobic Blood Culture - Preliminary No Growth Day 1 08/13/19 05:24 Stool Gross Appearance - Final Stool C. difficile DNA Amplification - Final 027 Presumptive NEGATIVE Toxigenic C.diff NEGATIVE Assess/Plan/Problems-Billing Mr. Cheatham is a 38M with HTN, prior tobacco use, who presented with dyspnea and diarrhea in the setting of being positive for COVID-19. Found with hypoxia, thrombocytopenia, elevated CRP. - Patient Problems (1) Viral pneumonia Comment: COVID-19 positive prior to presentation, presented with hypoxia, hypoNa , thrombocytopenia, elevated CRP. - s/p hydroxychloroquine/azithro - monitor vitals closely (2) HTN (hypertension) Comment: BP low-normal on his home antihypertensives, which were at lower than usual starting doses. Will stop lisinopril (concern for association with worse health outcomes with COVID) and cont amlodipine at 5mg. - cont to monitor BP (3) DVT prophylaxis Comment: [email or web address] (4) Full code status
[2019-08-17] MEDS: Allopurinol TAB* 300 MG PO SCH (08:33)
[2019-08-17] MEDS: amLODIPine TAB* 5 MG PO SCH (08:33)
[2019-08-17] MEDS: Loperamide CAP* 2 MG PO PRN ×2 (08:36→18:19)
[2019-08-17 08:58] LABS: Albumin 3.6 g/dL (3.2-5.2); Albumin/Globulin Ratio 1.1 (1-3); BUN/Creatinine Ratio 14.5 (8-20); C Reactive Protein 39.9 mg/L (<8.01); Calcium 9.2 mg/dL (8.6-10.3); EGFR African American 124.8 (>60); EGFR Non-African American 103.1 (>60); Globulin 3.3 g/dL (2-4); Magnesium 2.1 mg/dL (1.9-2.7); Potassium 4.1 mmol/L (3.5-5.0); Total Bilirubin 0.9 mg/dL (0.2-1.0); Total Protein 6.9 g/dL (6.4-8.9)
[2019-08-17] MEDS: Enoxaparin(*) 40 MG/0.4 ML SYR SUBCUT SCH (15:27)
[2019-08-18] MEDS: Allopurinol TAB* 300 MG PO SCH (09:05)
[2019-08-18] MEDS: amLODIPine TAB* 5 MG PO SCH (09:05)
--- NOTE | 2019-08-18 09:10 | PN ---
Subjective Date of Service: 08/18/19 Interval History: Was able to go to room air yesterday, but then hypoxic to 87% by the evening. Back on supplemental O2. Still feels well and is able to move around his room. Only some VILLALBA, with significant improvement in cough. Objective Active Medications: Acetaminophen (Tylenol Tab*) 650 mg PO Q4H PRN PRN Reason: Pain - Mild or fever >100.4 Last Admin: 08/15/19 20:47 Dose: 650 mg Allopurinol (Zyloprim Tab*) 300 mg PO DAILY [facility] Last Admin: 08/18/19 09:05 Dose: 300 mg Amlodipine Besylate (Norvasc Tab*) 5 mg PO DAILY [facility] Last Admin: 08/18/19 09:05 Dose: 5 mg Enoxaparin Sodium (Lovenox(*)) 40 mg SUBCUT Q24H [facility] Last Admin: 08/17/19 15:27 Dose: 40 mg Guaifenesin/Codeine Phosphate (Robitussin Ac 100mg/10mg In 5 Ml) 5 ml PO Q6H PRN PRN Reason: COUGH Loperamide HCl (Imodium Cap*) 2 mg PO .SEE DIRECTIONS PRN PRN Reason: DIARRHEA Last Admin: 08/17/19 18:19 Dose: 2 mg Lorazepam (Ativan Tab(*)) 0.5 mg PO Q6H PRN PRN Reason: ANXIETY Last Admin: 08/15/19 20:48 Dose: 0.5 mg Vital Signs - 8 hr 08/18/19 08/18/19 03:16 03:36 Temperature 98.0 F Pulse Rate 79 Respiratory 22 Rate Blood Pressure 124/78 (mmHg) O2 Sat by Pulse 94 Oximetry Oxygen Devices in Use Now: Nasal Cannula Appearance: well appearing man in NAD, speaking in full sentences Eyes: No Scleral Icterus Ears/Nose/Mouth/Throat: NL Teeth, Lips, Gums, Clear Oropharnyx Neck: NL Appearance and Movements; NL JVP, Trachea Midline Respiratory: Symmetrical Chest Expansion and Respiratory Effort, Clear to Auscultation Cardiovascular: NL Sounds; No Murmurs; No JVD, RRR Abdominal: NL Sounds; No Tenderness; No Distention, No Hepatosplenomegaly Extremities: No Edema Skin: No Rash or Ulcers Neurological: Alert and Oriented x 3 Result Diagrams: 08/15/19 10:48 08/17/19 07:13 Microbiology and Other Data: Microbiology 08/12/19 13:16 Aerobic Blood Culture - Preliminary Blood Venous No Growth Day 1 Anaerobic Blood Culture - Preliminary No Growth Day 1 08/12/19 13:16 Aerobic Blood Culture - Preliminary Blood Venous No Growth Day 1 Anaerobic Blood Culture - Preliminary No Growth Day 1 08/13/19 05:24 Stool Gross Appearance - Final Stool C. difficile DNA Amplification - Final 027 Presumptive NEGATIVE Toxigenic C.diff NEGATIVE Assess/Plan/Problems-Billing Mr. Cheatham is a 38M with HTN, prior tobacco use, who presented with dyspnea and diarrhea in the setting of being positive for COVID-19. Found with hypoxia, thrombocytopenia, elevated CRP. - Patient Problems (1) Viral pneumonia Comment: COVID-19 positive prior to presentation, presented with hypoxia, hypoNa , thrombocytopenia, elevated CRP. - s/p hydroxychloroquine/azithro - monitor vitals closely (2) HTN (hypertension) Comment: BP low-normal on his home antihypertensives, which were at lower than usual starting doses. Will stop lisinopril (concern for association with worse health outcomes with COVID) and cont amlodipine at 5mg. - cont to monitor BP (3) DVT prophylaxis Comment: [email or web address] (4) Full code status
[2019-08-18] MEDS: Enoxaparin(*) 40 MG/0.4 ML SYR SUBCUT SCH (17:20)
[2019-08-19] MEDS: amLODIPine TAB* 5 MG PO SCH (09:09)
[2019-08-19] MEDS: Allopurinol TAB* 300 MG PO SCH (09:09)
--- NOTE | 2019-08-19 11:25 | PN ---
Subjective Date of Service: 08/19/19 Interval History: No events overnight. Needed 2L NC overnight but is off of it this morning. Feels well. Can go home (after the Sabbath) tomorrow, and if needs oxygen, can likely have it set up quickly. Did not qualify for it today when tested by nursing staff. Objective Active Medications: Acetaminophen (Tylenol Tab*) 650 mg PO Q4H PRN PRN Reason: Pain - Mild or fever >100.4 Last Admin: 08/15/19 20:47 Dose: 650 mg Allopurinol (Zyloprim Tab*) 300 mg PO DAILY [facility] Last Admin: 08/19/19 09:09 Dose: 300 mg Amlodipine Besylate (Norvasc Tab*) 5 mg PO DAILY [facility] Last Admin: 08/19/19 09:09 Dose: 5 mg Enoxaparin Sodium (Lovenox(*)) 40 mg SUBCUT Q24H [facility] Last Admin: 08/18/19 17:20 Dose: 40 mg Guaifenesin/Codeine Phosphate (Robitussin Ac 100mg/10mg In 5 Ml) 5 ml PO Q6H PRN PRN Reason: COUGH Loperamide HCl (Imodium Cap*) 2 mg PO .SEE DIRECTIONS PRN PRN Reason: DIARRHEA Last Admin: 08/17/19 18:19 Dose: 2 mg Lorazepam (Ativan Tab(*)) 0.5 mg PO Q6H PRN PRN Reason: ANXIETY Last Admin: 08/15/19 20:48 Dose: 0.5 mg Oxygen Devices in Use Now: None Appearance: well appearing man in NAD, alert and interactive without increased WOB Ears/Nose/Mouth/Throat: Clear Oropharnyx, Mucous Membranes Moist Neck: NL Appearance and Movements; NL JVP, Trachea Midline Respiratory: Symmetrical Chest Expansion and Respiratory Effort, Clear to Auscultation Cardiovascular: NL Sounds; No Murmurs; No JVD, RRR Abdominal: NL Sounds; No Tenderness; No Distention, No Hepatosplenomegaly Lymphatic: No Cervical Adenopathy Extremities: No Edema Skin: No Rash or Ulcers Neurological: Alert and Oriented x 3 Result Diagrams: 08/15/19 10:48 08/17/19 07:13 Microbiology and Other Data: Microbiology 08/12/19 13:16 Aerobic Blood Culture - Preliminary Blood Venous No Growth Day 1 Anaerobic Blood Culture - Preliminary No Growth Day 1 08/12/19 13:16 Aerobic Blood Culture - Preliminary Blood Venous No Growth Day 1 Anaerobic Blood Culture - Preliminary No Growth Day 1 08/13/19 05:24 Stool Gross Appearance - Final Stool C. difficile DNA Amplification - Final 027 Presumptive NEGATIVE Toxigenic C.diff NEGATIVE Assess/Plan/Problems-Billing Mr. Cheatham is a 38M with HTN, prior tobacco use, who presented with dyspnea and diarrhea in the setting of being positive for COVID-19. Found with hypoxia, thrombocytopenia, elevated CRP. - Patient Problems (1) Viral pneumonia Comment: COVID-19 positive prior to presentation, presented with hypoxia, hypoNa , thrombocytopenia, elevated CRP. - s/p hydroxychloroquine/azithro - monitor vitals closely (2) HTN (hypertension) Comment: BP low-normal on his home antihypertensives, which were at lower than usual starting doses. Will stop lisinopril (concern for association with worse health outcomes with COVID) and cont amlodipine at 5mg. - cont to monitor BP (3) DVT prophylaxis Comment: riky (4) Full code status
[2019-08-19] MEDS: Enoxaparin(*) 40 MG/0.4 ML SYR SUBCUT SCH (16:50)
--- NOTE | 2019-08-19 17:49 | DS ---
C: Dr. Annemarie Fernando * DISCHARGE SUMMARY: DATE OF ADMISSION: 08/12/19 DATE OF DISCHARGE: 08/20/19 PRIMARY CARE PHYSICIAN: Dr. Annemarie Fernando. PRIMARY DIAGNOSIS: COVID-19 pneumonia. SECONDARY DIAGNOSES: 1. Hypertension. 2. Gout. 3. Low testosterone. DISCHARGE MEDICATIONS: 1. Amlodipine 5 mg daily. 2. Allopurinol 300 mg daily. 3. Loperamide 2 mg every 4 hours as needed for diarrhea. HISTORY OF PRESENT ILLNESS: Mr. Cheatham is a 38-year-old man with hypertension, gout, and low testosterone for which he receives injections, who is presenting to the emergency room with progressively worsening cough, dyspnea, and diarrhea. He states these symptoms began approximately 6 days prior to admission with sneezing, coughing, rhinorrhea, and fever up to 102.9. He went to [facility] on that day and states he was flu swabbed and reportedly negative. He continued to have fevers as well as other constellation of symptoms, and therefore, he went to the [facility] approximately 4 days prior to this presentation. At that time, he underwent a chest x-ray with COVID -19 screening, which subsequently resulted positive. Prior to the test result, he was prescribed azithromycin for possible bronchitis. He did report having sputum with his cough. He states that it was initially brown, but has now cleared up. He states that he has had diarrhea for the last 2 days since he started azithromycin. The patient was contacted by the Department of Health 1 day prior to presentation that his COVID-19 test was positive. His also has the infection. His children were swabbed as well and resulted negative. He does not recall any known direct contact with COVID positive cases in the community. He does work at [employer] and the [facility] has performed a contact investigation. HOSPITAL COURSE: In the emergency room, the patient was satting 90% on room air and he was placed on nasal cannula. He was initiated on Plaquenil 600 mg for 2 doses on the first day with subsequent 400 mg daily for 5 more days. The patient quickly had increased oxygen requirements, and by first day of admission , he was up to 4 L per minute of supplemental oxygen by nasal cannula. His C- reactive protein which was initially 50 increased to 122 over the next couple days, while his platelet which was initially 97 decreased to 59; however, because his oxygen requirements were not increasing above 4 L, he was maintained in an isolation room on the general medical floors without further ventilatory support. The patient experienced severe cough and shortness of breath on any exertion, but after a few days in the hospital he was able to tolerate more time in the chair. Over time, we were also able to titrate off his oxygen to room air. By his fourth day of admission, his thrombocytopenia and hyponatremia resolved. He also stopped experiencing fevers which were present on admission and his CRP began to significantly decrease. Last time it was drawn, it was 39.9. Two sets of blood cultures resulted negative by day 5 and he was also tested for C. diff given profuse diarrhea in the setting of taking azithromycin. The patient was deemed ready to be discharged home. He was tested for need for supplemental oxygen with ambulatory SaO2 by nursing staff and he did not qualify for needing to receive oxygen at home. The patient was able to ambulate around his room without significant symptoms and his diarrhea resolved by discharge. DIAGNOSTIC STUDIES/LAB DATA: CBC notable for thrombocytopenia on admission to 97, which nadired at 59, but was normal by discharge. BMP initially with hyponatremia to 131, which resolved by discharge, with normal creatinine. CRP peaked at 123. Blood cultures without growth for 2 sets. Chest x-ray with increased patchy bilateral airspace opacification. DISCHARGE PLAN: Mr. Cheatham will be discharged home. He completed a course of hydroxychloroquine and also finished the azithromycin course that was started as an outpatient. He will need to follow up with the Department of Health to be cleared from isolation precautions. For hypertension, the patient's lisinopril 5 mg was discontinued and his amlodipine 2.5 was doubled to 5 mg. His blood pressure was well maintained on amlodipine 5 mg throughout hospitalization and this will be prescribed on discharge. He should continue to follow this up with his primary care provider. The patient was given return precautions, which include but are not limited to recurrence of fevers, shortness of breath, cough. DIET: Healthy diet, low in processed foods. ACTIVITY: As tolerated. DISPOSITION: To home. CONDITION: Good. TIME SPENT: Approximately 60 minutes was spent on discharge of this patient, more than half of which was spent with care coordination at bedside for interview and exam. [id number]/[facility] #: [id number] GL[facility] COVE HOSPITALJanny
--- NOTE | 2019-08-20 09:43 | PN ---
Subjective Date of Service: 08/20/19 Interval History: Pt feels well, no cough, SOB/Fever Objective Active Medications: Acetaminophen (Tylenol Tab*) 650 mg PO Q4H PRN PRN Reason: Pain - Mild or fever >100.4 Last Admin: 08/15/19 20:47 Dose: 650 mg Allopurinol (Zyloprim Tab*) 300 mg PO DAILY [facility] Last Admin: 08/19/19 09:09 Dose: 300 mg Amlodipine Besylate (Norvasc Tab*) 5 mg PO DAILY [facility] Last Admin: 08/19/19 09:09 Dose: 5 mg Enoxaparin Sodium (Lovenox(*)) 40 mg SUBCUT Q24H [facility] Last Admin: 08/19/19 16:50 Dose: 40 mg Guaifenesin/Codeine Phosphate (Robitussin Ac 100mg/10mg In 5 Ml) 5 ml PO Q6H PRN PRN Reason: COUGH Loperamide HCl (Imodium Cap*) 2 mg PO .SEE DIRECTIONS PRN PRN Reason: DIARRHEA Last Admin: 08/17/19 18:19 Dose: 2 mg Lorazepam (Ativan Tab(*)) 0.5 mg PO Q6H PRN PRN Reason: ANXIETY Last Admin: 08/15/19 20:48 Dose: 0.5 mg Vital Signs - 8 hr 08/20/19 03:29 Temperature 98.0 F Pulse Rate 83 Respiratory 18 Rate Blood Pressure 124/79 (mmHg) O2 Sat by Pulse 94 Oximetry Oxygen Devices in Use Now: None Appearance: 38 yo M in nAD, AAox3 Eyes: No Scleral Icterus, PERRLA Ears/Nose/Mouth/Throat: NL Teeth, Lips, Gums Neck: NL Appearance and Movements; NL JVP, Trachea Midline Respiratory: Symmetrical Chest Expansion and Respiratory Effort Cardiovascular: NL Sounds; No Murmurs; No JVD Abdominal: NL Sounds; No Tenderness; No Distention Lymphatic: No Cervical Adenopathy Extremities: No Edema Skin: No Rash or Ulcers Neurological: Alert and Oriented x 3, NL Muscle Strength and Tone Result Diagrams: 08/15/19 10:48 08/17/19 07:13 Microbiology and Other Data: Microbiology 08/12/19 13:16 Aerobic Blood Culture - Preliminary Blood Venous No Growth Day 1 Anaerobic Blood Culture - Preliminary No Growth Day 1 08/12/19 13:16 Aerobic Blood Culture - Preliminary Blood Venous No Growth Day 1 Anaerobic Blood Culture - Preliminary No Growth Day 1 08/13/19 05:24 Stool Gross Appearance - Final Stool C. difficile DNA Amplification - Final 027 Presumptive NEGATIVE Toxigenic C.diff NEGATIVE Assess/Plan/Problems-Billing Mr. Cheatham is a 38M with HTN, prior tobacco use, who presented with dyspnea and diarrhea in the setting of being positive for COVID-19. Found with hypoxia, thrombocytopenia, elevated CRP. Discharge is completed, please see Dr. Briseno's d/c summary for details
[2019-08-20] MEDS: amLODIPine TAB* 5 MG PO SCH (10:15)
[2019-08-20] MEDS: Allopurinol TAB* 300 MG PO SCH (10:15)
[2019-08-20 10:16] VITALS: BP 123/79
== END 2019-08-20 10:45 | disposition home or self-care (01) | DRG 139 ==
LOC: ED 12:50 → MED 14:58
PROVIDERS: ADMIT Hospitalist; ATTEND Internal Medicine
DX: J12.89 Other viral pneumonia (principal); E87.1 Hypo-osmolality and hyponatremia; B97.29 Other coronavirus as the cause of diseases classified elsewhere; D69.6 Thrombocytopenia, unspecified; I10 Essential (primary) hypertension; M10.9 Gout, unspecified; R19.7 Diarrhea, unspecified; R09.02 Hypoxemia; E66.9 Obesity, unspecified; Z79.899 Other long term (current) drug therapy; Z80.9 Family history of malignant neoplasm, unspecified; Z87.891 Personal history of nicotine dependence; Z68.35 Body mass index [BMI] 35.0-35.9, adult
CPT/HCPCS: 36415; 71045; 80048; 80053; 80076; 83605; 83735; 83880; 84145; 84484; 85025; 85027; 85060; 86140; 87040; 87493; 96361; 96365; 96375; 99285; 99406; A9270-GY; J1650; J2405